=== PATIENT | female | born 1960 | race Caucasian/White ===

== ENCOUNTER 2025-09-21 11:29 | Emergency (ER) | payer BC, SELFPAY ==
[2025-09-21 11:33] VITALS: BP 155/101
[2025-09-21 11:50] LABS: Hematocrit 39.4 % (37.0-47.0); Hemoglobin 13.3 g/dL (12.0-16.0); Mean Corp Hgb Conc. 33.8 g/dL (33.0-37.0); Mean Corpuscular Volume 88.1 fL (81.0-99.0); Nucleated Red Blood Cells % 0 %; Platelet Count 141 10^3/uL (130-400); Red Cell Dist. Width 12.9 % (11.5-14.5)
[2025-09-21 12:09] LABS: ALT (SGPT) 21 U/L (0-35); AST (SGOT) 25 U/L (14-36); Albumin 4.5 g/dl (3.5-5.0); Alkaline Phosphatase 71 U/L (38-126); Blood Urea Nitrogen 9 mg/dl (7-17); Calcium 8.9 mg/dl (8.4-10.2); Carbon Dioxide 27 mmol/L (22-30); Chloride 105 mmol/L (98-107); Glucose 133 mg/dl (70-99); Potassium 4.1 mmol/L (3.5-5.1); Sodium 135 mmol/L (135-145); Total Protein 7.5 g/dl (6.3-8.2); eGFR > 60.00
--- NOTE | 2025-09-21 13:22 | ED.GENMED ---
History of Present Illness
<Mitch Leahy PA-C - Last Filed: 09/24/25 08:37>
General
Chief Complaint: Abdominal Symptoms
Source: patient
Time Seen by Provider: 09/21/25 13:13
History of Present Illness
History of Present Illness:
65-year-old female presents to the emergency department for evaluation of a bitemporal headache that started and woke the patient up around 3 AM described to be relatively severe, constant, 'worst headache of her life' and accompanied with
persistent nausea and vomiting stating she has vomited at least 10-12 times. Patient did attempt to take some Advil but states shortly thereafter she vomited so is unsure as to how much medication she actually got. No history of similar headaches
in the past. Denies any fevers, blurred or double vision, focal weakness or numbness, chest pain or shortness of breath. Social history was noncontributory and family history was negative for any acute neurologic problems
Past History
<Mitch Leahy PA-C - Last Filed: 09/24/25 08:37>
Past History
ED Past Medical History: None
ED Past Surgical History: Gynecological
Social History
Tobacco: Non-smoker
Alcohol: None
Drug: None
Personal:
Living: with family
Review of Systems
<Mitch Leahy PA-C - Last Filed: 09/24/25 08:37>
Review of Systems
All Other Systems: ROS reviewed and negative except as documented in HPI and ROS
Phy Exam
<Mitch Leahy PA-C - Last Filed: 09/24/25 08:37>
Physical Exam
Physical Exam:
GENERAL: Alert , in no apparent distress
HEAD: Normocephalic atraumatic
EYE: conjunctiva clear, pupils 3 mm bilateral, EOMI, PERRL
NECK: Supple, no significant adenopathy. No meningismus
ENT: o/p clr, mmm.
CARDIAC: Regular rate and rhythm
LUNGS: Clear breath sounds bilaterally, no acute respiratory distress, no wheezes/rales/rhonchi
NEUROLOGICAL: Alert and oriented
SKIN: Warm and dry, skin intact.
MUSCULOSKELETAL: well perfused.
PSYCH: Normal and appropriate interaction.
Scores
<Mitch Leahy PA-C - Last Filed: 09/24/25 08:37>
Heart Failure Risk
Heart Failure Risk Score: Not Applicable
Heart Score for Chest Pain Patients
STEMI patient?: Not applicable
Withdrawal Assessment of Alcohol
Withdrawal Assessment Completed?: Not applicable
Course
<Mitch Leahy PA-C - Last Filed: 09/24/25 08:37>
Orders/Labs/Results
Orders:
Orders
09/21/25 11:41
Complete Blood Count/With Diff Urgent
Comprehensive Metabolic Panel Urgent
09/21/25 13:19
CT Head & Neck Angio W/wo IV Urgent
Comment:
Reason For Exam: sudden headache, vomiting
0.9% Sodium Chloride 1000 ml [Nss] 1,000 ml IV BOLUS
Dexamethasone Sod Phosphate [Decadron] 10 mg IV NOW STA
Diphenhydramine [Benadryl] 25 mg IV NOW STA
Metoclopramide [Reglan] 10 mg IV NOW STA
09/21/25 16:38
Vital Signs- Treatment ONCE
Frequency: Once
Comment: temperature please
09/21/25 17:52
Ketorolac [Toradol] 15 mg IV NOW STA
09/21/25 20:14
Ketorolac [Toradol] 15 mg IV NOW STA
Abnormal Lab Results
09/21/25
11:41
MPV 10.6 H fL
(7.4-10.4)
Absolute Lymphs (auto) 0.8 L 10^3/uL
(1.2-3.4)
Neutrophils % 82.6 H %
(42.2-75.2)
Lymphocytes % 13.6 L %
(20.5-51.1)
Creatinine 0.5 L mg/dL
(0.6-1.0)
Glucose 133 H mg/dl
(70-99)
09/21/25 11:41
09/21/25 11:41
Vital Signs
Initial and Last Documented VS:
Initial Vital Signs
Pulse Resp BP Pulse Ox
67 18 155/101 99
09/21/25 11:33 09/21/25 11:33 09/21/25 11:33 09/21/25 11:33
Last Documented Vital Signs
Temp Pulse Resp BP Pulse Ox
99.2 F 74 20 119/59 98
09/21/25 19:24 09/21/25 17:01 09/21/25 17:01 09/21/25 17:01 09/21/25 17:01
<Edmundo Elizabeth MD - Last Filed: 09/21/25 19:25>
Orders/Labs/Results
Orders:
Orders
09/21/25 11:41
Complete Blood Count/With Diff Urgent
Comprehensive Metabolic Panel Urgent
09/21/25 13:19
CT Head & Neck Angio W/wo IV Urgent
Comment:
Reason For Exam: sudden headache, vomiting
0.9% Sodium Chloride 1000 ml [Nss] 1,000 ml IV BOLUS
Dexamethasone Sod Phosphate [Decadron] 10 mg IV NOW STA
Diphenhydramine [Benadryl] 25 mg IV NOW STA
Metoclopramide [Reglan] 10 mg IV NOW STA
09/21/25 16:38
Vital Signs- Treatment ONCE
Frequency: Once
Comment: temperature please
09/21/25 17:52
Ketorolac [Toradol] 15 mg IV NOW STA
09/21/25 20:14
Ketorolac [Toradol] 15 mg IV NOW STA
Abnormal Lab Results
09/21/25
11:41
MPV 10.6 H fL
(7.4-10.4)
Absolute Lymphs (auto) 0.8 L 10^3/uL
(1.2-3.4)
Neutrophils % 82.6 H %
(42.2-75.2)
Lymphocytes % 13.6 L %
(20.5-51.1)
Creatinine 0.5 L mg/dL
(0.6-1.0)
Glucose 133 H mg/dl
(70-99)
09/21/25 11:41
09/21/25 11:41
Vital Signs
Initial and Last Documented VS:
Initial Vital Signs
Pulse Resp BP Pulse Ox
67 18 155/101 99
09/21/25 11:33 09/21/25 11:33 09/21/25 11:33 09/21/25 11:33
Last Documented Vital Signs
Temp Pulse Resp BP Pulse Ox
99.2 F 74 20 119/59 98
09/21/25 19:24 09/21/25 17:01 09/21/25 17:01 09/21/25 17:01 09/21/25 17:01
<Mitch Leahy PA-C - Last Filed: 09/24/25 08:37>
MDM/Problems Addressed
Differential Diagnosis Includes:
SAH
Aneurysm
Mass/Malignancy
Migraine
Tension headache
GCA
Seizure
CVA
MDM/Problems Addressed:
65-year-old female presenting to the ER for evaluation of bitemporal headache accompanied with persistent nausea and vomiting. No fevers or infectious symptoms. No risk factors for CVA/intracranial bleeding but given the severity of the symptoms
combined with the persistent nature of the symptoms will obtain CT and CTA of the head and neck. Migraine cocktail ordered. Disposition pending
<Mitch Leahy PA-C - Last Filed: 09/24/25 08:37>
*Pulse Oximetry
SaO2: 99
Oxygen Mode of Delivery: Room air
Patient hypoxic: no
*Critical Care Note
Total Time (30-74mins, 75-104mins- exclusive of procedures): Not Applicable
ED Attending Note
<Mitch Leahy PA-C - Last Filed: 09/24/25 08:37>
-
Portions of this chart may have been created with voice recognition software.� Occasional wrong word or��sound alike� substitutions may have occurred due to the inherent limitations of voice recognition software.
<Edmundo Elizabeth MD - Last Filed: 09/21/25 19:25>
ED Attending Note
Patient seen and examined by attending physician: Yes
ED Attending Note:
I have seen and evaluated the patient with a [id number] encounter. I have spoken to the advance practicer provider and involved in the medical history, the physical exam, medical decision making.
Evaluation and management service: agree unless noted differently below.
Results interpretation: agree unless noted differently below.
Focused HPI: 65-year-old female with no chronic medical issues presents for evaluation of headache. 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 She says that she woke up in the middle of the night last night with a severe headache 10 out of
10 intensity. She describes the headache as bifrontal. She says she had some nausea and vomiting today. Came to the ER for assessment. She says she has occasionally had headaches but never to this degree. She denies any trauma. She denies any
neck pain or stiffness. No fever or chills. She did not have any preceding illness. Denies any neurologic symptoms.
Physical exam: Awake and alert, resting comfortably not in distress. She was hypertensive in triage but vitals are normal during my assessment. Cranial nerves are intact and motor and sensory is intact in her extremities. She has a supple neck
without meningismus.
Medical Decision Makin-year-old female presents for evaluation of headache. Quite severe with nausea and vomiting earlier but symptoms have greatly improved by the time of my assessment. She had labs which were unremarkable. She is currently
awaiting results of his CTA head and neck�I did review myself and see no acute abnormalities but we are awaiting final report. She received treatment here and says symptoms have greatly improved. She does not appear to have any meningeal signs,
fever or other symptoms to suggest that this is meningitis. I did speak to the patient about lumbar puncture but at this point I do not think that it is indicated with improving symptoms and reassuring workup thus far. Will plan to discharge home
pending final radiology report with strict return precautions if symptoms are to return/worsen.
Discharge Plan
Departure
Patient Disposition: Home (Routine Discharge)
Date of Disposition: 09/21/25
Time of Disposition: 20:04
Patient with high blood pressure during this ER visit?: Yes
Discharge Problem:
Headache
Instructions: Headache in adults - ED (DC)
Referrals:
Marco Burks MD [Family Provider, [facility]] - Follow up in 2-3 days
Activity Restrictions/Additional Instructions:
Thank you for visiting the Emergency Department at [facility].
1. Please schedule a follow up appointment as directed. Call first thing tomorrow morning to make an appointment.
2. If indicated, please take your medications as instructed and indicated on discharge paperwork.
3. If any of your symptoms do not improve, or persist, or become more severe within 6-12 hours, please return to the emergency department for further care.
4. Please return to the emergency department if you develop a headache, neck pain/stiffness, fever greater than 100.4F, chest pain, shortness of breath, persistent nausea, vomiting, slurred speech, difficulty walking, numbness/tingling, weakness,
signs of infection or any other symptoms that are worrisome to you.
Please call [phone] if you have any questions.
Interventions
Interventions:
*Risk Screen - Suicide Last Done: 09/21/25 11:33
*General Assessment Last Done: 09/21/25 11:33
*Neglect/Abuse Screening Last Done: 09/21/25 11:33
*ED- Fall Risk Assessment Last Done: 09/21/25 17:01
*ED COVID-19 Vaccine History Last Done: 09/21/25 17:01
*ED Influenza Vaccine History Last Done: 09/21/25 17:01
*Nursing Disposition Last Done: 09/21/25 22:04
DL-Umjgbg-Gudvprpejm Assessment Last Done: 09/21/25 13:00
Discharge Date and Time
Discharge Date/Time: 09/21/25 22:04
Print Language: TURKISH
[2025-09-21] MEDS: DECADRON 10 MG IV (13:56)
[2025-09-21] MEDS: BENADRYL 25 MG IV (13:58)
[2025-09-21] MEDS: NSS 1000 IV (13:59)
[2025-09-21] MEDS: REGLAN 10 MG IV (13:59)
[2025-09-21 17:01] VITALS: BP 119/59
[2025-09-21] MEDS: TORADOL 15 MG IV ×2 (17:55→20:20)
== END 2025-09-21 22:04 | disposition home or self-care (01) ==
LOC: EMR 11:29
PROVIDERS: Student in an Organized Health Care Education/Training Program; EMERGENCY PHYSICIAN Emergency Medicine; FAMILY PHYSICIAN Family Medicine
DX: R51.9 Headache, unspecified (principal); R03.0 Elevated blood-pressure reading, without diagnosis of hypertension
CPT/HCPCS: 99284; 96374; 96375 ×3; 96376; 96361; 70496; 70498; 80053; 85025; Q9967

== ENCOUNTER → 2025-10-17 14:31 | Outpatient (REF) | payer SELFPAY | LOC: HWRAD 14:31 | PROVIDERS: ATTENDING PHYSICIAN Physician Assistant; FAMILY PHYSICIAN Family Medicine | DX: E78.2 Mixed hyperlipidemia (principal) | CPT/HCPCS: 75571 ==